=== PATIENT | male | born 1970 | race Two or more races ===

== ENCOUNTER 2021-12-05 00:11 | Emergency (ER) | payer OTHER ==
[~2021-12-05] VITALS: Ht 167.6 cm; Wt 73.4 kg
[2021-12-05 05:11] VITALS: BP 107/71
== END 2021-12-05 05:55 | disposition home or self-care (01) ==
LOC: EMS 00:13
DX: S00.01XA Abrasion of scalp, initial encounter (principal); R41.82 Altered mental status, unspecified; F10.129 Alcohol abuse with intoxication, unspecified; I10 Essential (primary) hypertension; W18.39XA Other fall on same level, initial encounter; Y93.89 Activity, other specified; Y92.89 Other specified places as the place of occurrence of the external cause; Y99.8 Other external cause status
CPT/HCPCS: 70450; 72125; 99284